=== PATIENT | female | born 1965 | race Asian ===

== ENCOUNTER 2017-11-16 23:21 | Emergency (ER) | payer MEDICAID ==
[~2017-11-16] VITALS: Ht 157.5 cm; Wt 49.0 kg
[2017-11-16 23:40] VITALS: BP 120/74
[2017-11-17 00:25] VITALS: BP 122/76
[2017-11-17] MEDS ORDERED: ROBAXIN-750750 MG PO (00:30)
[2017-11-17] MEDS ORDERED: IBUPROFEN600 MG ORAL (00:30)
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
[2017-11-17 00:35] VITALS: BP 122/76
== END 2017-11-17 00:35 | disposition home or self-care (01) ==
LOC: EMR 23:59
DX: S16.1XXA Strain of muscle, fascia and tendon at neck level, initial encounter (principal); V43.62XA Car passenger injured in collision with other type car in traffic accident, initial encounter; Y92.410 Unspecified street and highway as the place of occurrence of the external cause; Z88.0 Allergy status to penicillin
CPT/HCPCS: 99283